=== PATIENT | male | born 1990 | race American Indian/Alaskan Native ===

== ENCOUNTER 2019-05-13 14:59 | Emergency (ER) | payer MEDICAID ==
[2019-05-13 15:05] VITALS: BP 123/80
[2019-05-13] MEDS ORDERED: predniSONE 20 MG TAB PO ONE (15:07)
--- NOTE | 2019-05-13 15:07 | Emergency Department Report ---
Blank Doc - Documentation Documentation: 28-year-old male that presents with asthma exacerbation. This initial assessment/diagnostic orders/clinical plan/treatment(s) is/are subject to change based on patient's health status, clinical progression and re- assessment by fellow clinical providers in the ED. Further treatment and workup at subsequent clinical providers discretion. Patient/guardians urged not to elope from the ED as their condition may be serious if not clinically assessed and managed. Initial orders include: 1- Patient sent to [facility] for further evaluation and treatment 2- breathing treatment/steroids
[2019-05-13] MEDS: IPRATROPIUM/ALBUTEROL SULFATE 3 ML AMPUL.NEB IH ONE ×2 (15:39→15:40)
--- NOTE | 2019-05-13 16:10 | Emergency Department Report ---
ED Asthma HPI - General Chief Complaint: Adult Asthma Stated Complaint: ASTHMA ATTACK Time Seen by Provider: 05/13/19 15:05 Source: patient Mode of arrival: Ambulatory Limitations: No Limitations - History of Present Illness Initial Comments: Patient is a 28-year-old male presents emergency room with complaints of an asthma exacerbation that began yesterday. He has associated wheezing, shortness of breath, persistent dry cough. He denies any fever, productive cough, sick contacts. pt has a past medical history of acid reflux and is supposed to be taking ranitidine but has not been taking it. He states that his doctor prescribed him the ranitidine. He states he has been feeling nauseous with eating. Patient states he takes dulera an albuterol inhaler for asthma. He denies the allergies to medicines. he states he also has a hx of allergies and is supposed to be taking zyrtec. - Related Data Previous Rx's Medication Instructions Recorded Last Taken Type Ondansetron [Zofran Odt] 4 mg PO Q8HR PRN #10 tab.rapdis 05/13/19 Unknown Rx predniSONE [Deltasone] 40 mg PO QDAY 5 Days #10 tab 05/13/19 Unknown Rx Allergies Allergy/AdvReac Type Severity Reaction Status Date / Time Penicillins AdvReac Nausea Verified 05/13/19 15:02 ED Review of Systems ROS: Stated complaint: ASTHMA ATTACK Other details as noted in HPI Comment: All other systems reviewed and negative ED Past Medical Hx - Past Medical History Previous Medical History?: Yes Hx Asthma: Yes - Surgical History Past Surgical History?: No - Social History Smoking Status: Never Smoker Substance Use Type: None - Medications Home Medications: Home Medications Medication Instructions Recorded Confirmed Last Taken Type Ondansetron [Zofran Odt] 4 mg PO Q8HR PRN #10 tab.rapdis 05/13/19 Unknown Rx predniSONE [Deltasone] 40 mg PO QDAY 5 Days #10 tab 05/13/19 Unknown Rx ED Physical Exam - General Limitations: No Limitations General appearance: alert, in no apparent distress - Head Head exam: Present: atraumatic, normocephalic - Eye Eye exam: Present: normal appearance - ENT ENT exam: Present: normal orophraynx, mucous membranes moist, other (pale turbinates) - Respiratory Respiratory exam: Present: normal lung sounds bilaterally. Absent: respiratory distress, wheezes, rales, rhonchi, stridor, chest wall tenderness, accessory muscle use, decreased breath sounds, prolonged expiratory - Cardiovascular Cardiovascular Exam: Present: regular rate, normal rhythm, normal heart sounds. Absent: systolic murmur, diastolic murmur, rubs, gallop - Neurological Exam Neurological exam: Present: alert, oriented X3 - Psychiatric Psychiatric exam: Present: normal affect, normal mood - Skin Skin exam: Present: warm, dry, intact ED Course Vital Signs 05/13/19 05/13/19 15:03 15:41 Temperature 98.6 F Pulse Rate 86 Pulse Rate [ 80 Bilateral Lower Lobe] Pulse Rate [ 80 Right Lower Lobe] Respiratory 18 Rate Respiratory 18 Rate [Bilateral Lower Lobe] Respiratory 18 Rate [Right Lower Lobe] Blood Pressure 123/80 O2 Sat by Pulse 96 Oximetry ED Medical Decision Making - Medical Decision Making Patient is a 28-year-old male presents emergency room with complaints of an asthma exacerbation that began yesterday. He has associated wheezing, shortness of breath, persistent dry cough. He denies any fever, productive cough, sick contacts. pt has a past medical history of acid reflux and is supposed to be taking ranitidine but has not been taking it. He states that his doctor prescribed him the ranitidine. He states he has been feeling nauseous with eating. Patient states he takes dulera an albuterol inhaler for asthma. He denies the allergies to medicines. he states he also has a hx of allergies and is supposed to be taking zyrtec. vitals are normal. pt was assessed by another provider in triage and given neb tx and steroids. on my assessment after pt received medications pt has no wheezing, breath sounds are clear bilaterally. pt has no clinical s/sx of PNA. pt given prescription for steroids and zofran as needed for his nausea until he is able to fully get back on his GERD medications. his mother states that he has a prescription available at the pharmacy for his ranitidine. advised pt to Please take medications as prescribed. Please also take your Zyrtec and ranitidine that is prescribed by your doctor. Increase your water intake over the next several days. Follow the diet for acid reflux. Follow-up with a primary care doctor in the next 2-3 days for reexamination. Return to the emergency room for any new or worsening symptoms. - Differential Diagnosis asthma exacerbation, GERD, allergies, allergic rhinitis, URI Critical care attestation.: If time is entered above; I have spent that time in minutes in the direct care of this critically ill patient, excluding procedure time. ED Disposition Clinical Impression: Asthma exacerbation Qualifiers: Asthma severity: unspecified severity Asthma persistence: unspecified Qualified Code(s): J45.901 - Unspecified asthma with (acute) exacerbation GERD (gastroesophageal reflux disease) Qualifiers: Esophagitis presence: without esophagitis Qualified Code(s): K21.9 - Gastro- esophageal reflux disease without esophagitis Disposition: TO HOME OR SELFCARE Is pt being admited?: No Does the pt Need Aspirin: No Condition: Stable Instructions: Asthma (ED), Diet for Ulcers and Gastritis (ED), Gastroesophageal Reflux Disease (ED) Additional Instructions: Please take medications as prescribed. Please also take your Zyrtec and ranitidine that is prescribed by your doctor. Increase your water intake over the next several days. Follow the diet for acid reflux. Follow-up with a primary care doctor in the next 2-3 days for reexamination. Return to the emergency room for any new or worsening symptoms. Prescriptions: predniSONE [Deltasone] 40 mg PO QDAY 5 Days #10 tab Ondansetron [Zofran Odt] 4 mg PO Q8HR PRN #10 tab.rapdis PRN Reason: Nausea Referrals: your, primary care doctor [Other] - 2-3 Days Time of Disposition: 16:10 Print Language: DANISH
== END 2019-05-13 16:20 | disposition home or self-care (01) ==
LOC: ED 14:59
DX: K21.9 Gastro-esophageal reflux disease without esophagitis (principal); J45.901 Unspecified asthma with (acute) exacerbation; Z79.899 Other long term (current) drug therapy; Z88.0 Allergy status to penicillin
CPT/HCPCS: 94640; 99282; J7512; 94644

== ENCOUNTER 2021-06-07 14:45 | Emergency (ER) | payer MEDICAID ==
[2021-06-07] MEDS ORDERED: ONDANSETRON 4 MG ODT TAB PO ONE (18:31)
--- NOTE | 2021-06-07 19:00 | Emergency Department Report ---
- General Chief Complaint: Upper Respiratory Infection Stated Complaint: VOMITING Time Seen by Provider: 06/07/21 18:17 Source: patient Mode of arrival: Ambulatory Limitations: No Limitations - History of Present Illness Initial Comments: 30-year-old -Spanish male presents to the emergency room complaining of sneezing coughing x3 days states he has vomited one nausea today. Denies any diarrhea. States has been taken [id number] cough medication. Patient is not vaccinated for Covid and has not tested for Covid. Patient denies any body aches. Complains of generalized abdominal pain. States he has a history of asthma and acid reflux. States has been using his inhaler and nebulizer. He reports he does have a primary care provider Dr. Jayce maes. He has an allergy to penicillin. MD Complaint: cough Onset/Timin -: days(s) Severity scale (0 -10): 2 Quality: aching Consistency: intermittent Improves With: nothing Worsens With: nothing Associated Symptoms: rhinorrhea, cough, nausea, vomiting, other (Sneezing). denies: fever, chills, nasal congestion, sore throat, diarrhea Treatments Prior to Arrival: none - Related Data Previous Rx's Medication Instructions Recorded Last Taken Type Ondansetron [Zofran Odt] 4 mg PO Q8HR PRN #10 tab.rapdis 05/13/19 Unknown Rx predniSONE [Deltasone] 40 mg PO QDAY 5 Days #10 tab 05/13/19 Unknown Rx Ondansetron [Zofran Odt] 4 mg PO Q8HR PRN #3 tab.rapdis 06/07/21 Unknown Rx Allergies Allergy/AdvReac Type Severity Reaction Status Date / Time Penicillins AdvReac Nausea Verified 05/13/19 15:02 ED Review of Systems ROS: Stated complaint: VOMITING Other details as noted in HPI Comment: All other systems reviewed and negative ED Past Medical Hx - Past Medical History Previous Medical History?: Yes Hx Asthma: Yes - Surgical History Past Surgical History?: No - Social History Smoking Status: Never Smoker Substance Use Type: None - Medications Home Medications: Home Medications Medication Instructions Recorded Confirmed Last Taken Type Ondansetron [Zofran Odt] 4 mg PO Q8HR PRN #10 tab.rapdis 05/13/19 Unknown Rx predniSONE [Deltasone] 40 mg PO QDAY 5 Days #10 tab 05/13/19 Unknown Rx Ondansetron [Zofran Odt] 4 mg PO Q8HR PRN #3 tab.rapdis 06/07/21 Unknown Rx ED Physical Exam - General Limitations: No Limitations General appearance: alert, in no apparent distress - Head Head exam: Present: atraumatic, normocephalic - Eye Eye exam: Present: normal appearance - ENT ENT exam: Present: mucous membranes moist - Neck Neck exam: Present: normal inspection - Respiratory Respiratory exam: Present: normal lung sounds bilaterally. Absent: respiratory distress - Cardiovascular Cardiovascular Exam: Present: regular rate, normal rhythm. Absent: systolic murmur, diastolic murmur, rubs, gallop - GI/Abdominal GI/Abdominal exam: Present: soft, normal bowel sounds. Absent: distended, tenderness, guarding - Rectal Rectal exam: Present: deferred - Extremities Exam Extremities exam: Present: normal inspection - Back Exam Back exam: Present: normal inspection - Neurological Exam Neurological exam: Present: alert, oriented X3 - Psychiatric Psychiatric exam: Present: normal affect, normal mood - Skin Skin exam: Present: warm, dry, intact, normal color. Absent: rash ED Course Vital Signs 06/07/21 15:33 Pulse Rate 94 H Respiratory 16 Rate Blood Pressure 124/79 [Left] O2 Sat by Pulse 95 Oximetry ED Medical Decision Making - Medical Decision Making 30-year-old -Spanish male presents to the emergency room complaining of sneezing coughing x3 days states he has vomited one nausea today. Denies any diarrhea. States has been taken [id number] cough medication. Patient is not vaccinated for Covid and has not tested for Covid. Patient denies any body aches. Complains of generalized abdominal pain. States he has a history of asthma and acid reflux. States has been using his inhaler and nebulizer. He reports he does have a primary care provider Dr. Jayce deluca. He has an allergy to penicillin. Patient is given Zofran 4 mg ODT. P.o. challenge has been ordered. Critical care attestation.: If time is entered above; I have spent that time in minutes in the direct care of this critically ill patient, excluding procedure time. ED Disposition Clinical Impression: Suspected COVID-19 virus infection Disposition: HOME / SELF CARE / HOMELESS Is pt being admited?: No Does the pt Need Aspirin: No Condition: Stable Instructions: COVID-19 Frequently Asked Questions, COVID-19: How to Protect Yourself and Others - CDC, Prevent the Spread of COVID-19 if You Are Sick - [facility] Additional Instructions: Your symptoms appear most consistent with a nonspecific viral syndrome. However, given this current pandemic, COVID-19 is in the differential of possibilities. I do recommend outpatient Covid 19 testing. In the meantime, isolate/quarantine yourself and stay away from anyone who is elderly, immunocompromised or chronically ill. You can use ibuprofen every 6-8 hours and Tylenol every 4-8 hours, using the dosing on the back of the bottle, as needed for any fever or body aches. Return to the emergency department with any worsening of your symptoms, development of chest pain or shortness of breath, or with any acute distress. Prescriptions: Ondansetron [Zofran Odt] 4 mg PO Q8HR PRN #3 tab.rapdis PRN Reason: Nausea And Vomiting Referrals: PRIMARY CARE, [Primary Care Provider] - 3-5 Days Your, primary care provider [Other] - 3-5 Days Forms: Work/School Release Form(ED) Time of Disposition: 19:57
[2021-06-07 20:14] VITALS: BP 136/92
== END 2021-06-07 20:13 | disposition home or self-care (01) ==
LOC: ED 14:45
DX: R05.9 Cough, unspecified (principal); Z20.822 Contact with and (suspected) exposure to COVID-19; J45.909 Unspecified asthma, uncomplicated; Z88.0 Allergy status to penicillin
CPT/HCPCS: 99282; J3490; Q0162